=== PATIENT | male | born 1970 | race African-American/Black ===

== ENCOUNTER 2019-10-24 14:08 | Emergency (ER) | payer OTHER ==
[~2019-10-24] VITALS: Ht 175.3 cm; Wt 88.6 kg
[2019-10-24] MEDS ORDERED: MethylPREDNISolone SOD SUCC 125 MG/2 ML VIAL IM ONE (15:30)
[2019-10-24] MEDS ORDERED: HydrOXYzine HCL 25 MG TABLET PO ONE (15:30)
[2019-10-24 16:22] VITALS: BP 165/101
== END 2019-10-24 16:25 | disposition home or self-care (01) ==
LOC: EMS 14:10
DX: R20.2 Paresthesia of skin (principal); J45.909 Unspecified asthma, uncomplicated; I10 Essential (primary) hypertension; F17.210 Nicotine dependence, cigarettes, uncomplicated
CPT/HCPCS: 96372; 99283; J2930

== ENCOUNTER 2020-07-24 14:14 | Emergency (ER) | payer OTHER ==
[~2020-07-24] VITALS: Ht 175.3 cm; Wt 81.8 kg
[2020-07-24 14:20] VITALS: BP 152/84
== END 2020-07-24 17:07 | disposition home or self-care (01) ==
LOC: EMS 14:26
DX: S63.287A Dislocation of proximal interphalangeal joint of left little finger, initial encounter (principal); X50.9XXA Other and unspecified overexertion or strenuous movements or postures, initial encounter; Y93.89 Activity, other specified; Y92.89 Other specified places as the place of occurrence of the external cause; Y99.8 Other external cause status
CPT/HCPCS: 26770; 73130-TC; Z7502